=== PATIENT | female | born 1990 | race Caucasian/White ===

== ENCOUNTER 2022-01-15 21:09 | Emergency (ER) | payer OTHER | END 2022-01-16 00:02 | disposition home or self-care (01) | LOC: CSHERS 21:09 | DX: S06.0X0A Concussion without loss of consciousness, initial encounter (principal); S93.402A Sprain of unspecified ligament of left ankle, initial encounter; F17.210 Nicotine dependence, cigarettes, uncomplicated | CPT/HCPCS: 70450 ==